=== PATIENT | male | born 1980 | race Caucasian/White ===

== ENCOUNTER 2022-08-29 15:33 | Emergency (ER) | payer OTHER ==
[2022-08-29 15:47] VITALS: BP 141/97; PULSE 106; RESP 16; TEMP 98.2; BMI 27.8
[2022-08-29 16:57] LABS: BASO % 0.4 % (0-2.0); EOS % 1.2 % (0-4.5); HEMATOCRIT 44.8 % (35.4-49); HEMOGLOBIN 15.5 GM/dL (11.7-16.9); LYMPH % 47.1 % (8-40); MCH 32.8 pg (25.7-33.7); MCHC 34.6 g/dl (32.0-35.9); MEAN CELL VOLUME 94.8 fl (80-96); MEAN PLT VOLUME 7.3 fl (7.5-11.1); MONO % 8.2 % (3.8-10.2); NEUT % 43.1 % (42.8-82.8); PLATELET COUNT 235 10^3/uL (134-434); RBC 4.73 M/mm3 (4.00-5.60); RDW 13.6 % (11.9-15.9); WHITE BLOOD COUNT 7.1 K/mm3 (4.0-10.0)
[2022-08-29 16:58] LABS: PH,URINE 6.5 (5.0-8.0); URINE APPEARANCE CLEAR; URINE BILIRUBIN NEGATIVE (NEGATIVE); URINE COLOR YELLOW; URINE GLUCOSE (UA) NEGATIVE (NEGATIVE); URINE KETONE NEGATIVE (NEGATIVE); URINE LEUK ESTERASE NEGATIVE (NEGATIVE); URINE NITRITE NEGATIVE (NEGATIVE); URINE PROTEIN NEGATIVE (NEGATIVE); URINE UROBILINOGEN 0.2 mg/dL (0.2-1.0)
[2022-08-29 18:04] LABS: SYPHILIS W/ RPR CONF NON-REACTIVE (NONREACTIVE)
[2022-08-29 18:12] LABS: HIV INTERPRETATION NEGATIVE (NEGATIVE)
[2022-08-29 18:50] LABS: CALCIUM 8.7 mg/dL (8.5-10.1)
[2022-08-29 18:51] LABS: BLOOD UREA NITROGEN 14.2 mg/dL (7-18)
[2022-08-29 18:54] LABS: CREATININE 0.8 mg/dL (0.55-1.3)
== END 2022-08-29 17:37 | disposition home or self-care (01) ==
LOC: JERFT 15:33
DX: Z11.3 Encounter for screening for infections with a predominantly sexual mode of transmission (principal)
CPT/HCPCS: 36415; 80048; 81003; 85025; 86780; 87086; 87389; 87491; 87529; 87591; 87661; 99283-25